=== PATIENT | male | born 1945 | race Caucasian/White ===

== ENCOUNTER → 2016-07-25 | Outpatient (CLI) | payer MEDICARE, BC | LOC: MW.CHGS 08:00 | PROVIDERS: ATTEND Surgery | DX: K80.20 Calculus of gallbladder without cholecystitis without obstruction (principal) | CPT/HCPCS: 99203 ==

== ENCOUNTER 2023-10-01 09:24 | Emergency (ER) | payer MEDICARE, BC ==
[2023-10-01] MEDS ORDERED: Sodium Chloride 0.9% 10 ML Syringe FLUSH PRN (09:29)
[2023-10-01] MEDS ORDERED: Sodium Chloride 0.9% 2.5 ML Syringe FLUSH PRN (09:29)
[2023-10-01] MEDS: Aspirin 81 MG Tab.Chew PO ONE (09:35)
[2023-10-01] MEDS: Ondansetron 4 MG/2 ML SDV IVPUSH ONE ×2 (09:51→09:54)
[2023-10-01] MEDS: Tenecteplase 50 MG Kit IV ONE (09:51)
[2023-10-01 09:52] LABS: HEMATOCRIT 32.4 % (42.0-52.0); HEMOGLOBIN 9.9 g/dL (14.0-18.0); MEAN CORPUSCULAR HGB CONC 30.6 g/dL (32.0-36.0); MEAN CORPUSCULAR VOLUME 88.5 fL (83.0-99.0); MEAN PLATELET VOLUME 10.7 fL (9.4-12.4); NRBC ABSOLUTE 0.15 K/uL (0.00-0.02); NRBC PERCENT 1.6 /100WBC (0.0-0.2); PLATELET COUNT,PLT 342 K/uL (150-400); RED BLOOD CELL COUNT 3.66 M/uL (4.52-5.90)
[2023-10-01] MEDS: Sodium Chloride 0.9% 1,000 ML IV ONE ×2 (09:52→10:14)
[2023-10-01] MEDS: Tenecteplase 50 MG Kit ONE (09:53)
[2023-10-01] MEDS: Clopidogrel 75 MG Tab PO ONE (10:02)
[2023-10-01] MEDS: Heparin Sodium 5,000 Units/ML Vial IVPUSH PRN (10:02)
[2023-10-01] MEDS: Heparin Sodium/0.45% NaCl 500 ML IV SCH (10:03)
[2023-10-01 10:07] LABS: A/G RATIO 1.2 (0.9-1.6); ALBUMIN 3.7 g/dL (3.4-5.0); BILIRUBIN TOTAL 1.8 mg/dL (0.2-1.0); CALCIUM 8.5 mg/dL (8.5-10.1); CARBON DIOXIDE,CO2 22.1 mmol/L (21.0-32.0); CREATININE 1.3 mg/dL (0.8-1.3); EST CRCL DRUG DOSING (CG) 51.4 mL/min; POTASSIUM,K 3.6 mmol/L (3.5-5.1); PROTEIN TOTAL,TP 6.9 g/dL (6.4-8.2)
[2023-10-01] MEDS: Nitroglycerin 2% Oint 1 GM UD Packet TOP ONE (10:14)
[2023-10-01 10:39] LABS: BAND ABSOLUTE MAN 0.19; BAND PERCENT MAN 2 %; BLASTS PERCENT MAN 1 %; ELLIPTOCYTES 2+ MODERATE; EOSINOPHILS ABSOLUTE MAN 0.38 K/uL (0.00-0.45); EOSINOPHILS PERCENT MAN 4 % (0-6); LYMPHOCYTES ABSOLUTE MAN 2.21 K/uL (1.00-4.80); LYMPHOCYTES PERCENT MAN 23 % (24-44); MONOCYTES ABSOLUTE MAN 0.58 K/uL (0.00-0.80); MONOCYTES PERCENT MAN 6 % (0-8); POIKILOCYTOSIS 2+ MODERATE; SEG NEUTROPHILS ABSOLUTE MAN 6.14 K/uL (1.80-7.70); SEG NEUTROPHILS PERCENT MAN 64 % (41-71)
[2023-10-01 10:40] LABS: PLATELET COUNT ESTIMATE ADEQUATE
[2023-10-01] MEDS ORDERED: EPINEPHrine 1 MG in Sodium Chloride 0.9% 100 ML IV SCH (10:45)
[2023-10-01] MEDS: HYDROmorphone 0.5 MG/0.5 ML Syringe IVPUSH ONE (10:51)
[2023-10-01] MEDS: Sodium Chloride 0.9% 1,000 ML IV STA (10:58)
[2023-10-01] MEDS: Norepinephrine Bit/D5W Premix 250 ML IV SCH (11:22)
[2023-10-01] MEDS: Norepinephrine Bit/D5W Premix 250 ML ONE (11:23)
== END 2023-10-01 11:24 ==
LOC: MW.ED 09:24
DX: I21.3 ST elevation (STEMI) myocardial infarction of unspecified site (principal); I25.10 Atherosclerotic heart disease of native coronary artery without angina pectoris; Z95.5 Presence of coronary angioplasty implant and graft; Z88.5 Allergy status to narcotic agent; Z88.0 Allergy status to penicillin; Z88.2 Allergy status to sulfonamides; Z75.8 Other problems related to medical facilities and other health care
CPT/HCPCS: 36415; 71045; 80053; 82947; 84484; 85025; 85730; 93005; 96365; 96375; 99285; A9270; J1170; J1644; J2405; J3101; J7030; 93010; 99291; J3490

== ENCOUNTER 2024-09-24 15:09 | Emergency (ER) | payer MEDICARE, BC ==
[2024-09-24] MEDS ORDERED: Acetaminophen 325 MG/10.15 ML PO ONE (15:30)
[2024-09-24] MEDS ORDERED: Sodium Chloride 0.9% 2.5 ML Syringe FLUSH PRN (16:14)
[2024-09-24] MEDS ORDERED: Sodium Chloride 0.9% 10 ML Syringe FLUSH PRN (16:14)
[2024-09-24 16:48] LABS: NRBC ABSOLUTE 0.21 K/uL (0.00-0.02); NRBC PERCENT 5.5 /100WBC (0.0-0.2); PLATELET COUNT,PLT 188 K/uL (150-400); RED BLOOD CELL COUNT 3.07 M/uL (4.52-5.90); WHITE BLOOD CELL COUNT,WBC 3.79 K/uL (3.9-11.3)
[2024-09-24 17:01] LABS: INR 1.1 (0.86-1.11); PTT,PARTIAL THROMBOPLSTIN TIME 27.6 SEC (23.9-30.7)
[2024-09-24 17:29] LABS: A/G RATIO 1.5 (0.9-1.6); ALANINE AMINOTRANSFERASE,ALT 20.0 IU/L (14-63); ASPARTATE AMNIOTRANSFERASE,AST 21.0 IU/L (15-37); BILIRUBIN TOTAL 1.7 mg/dL (0.2-1.0); BLOOD UREA NITROGEN,BUN 30.0 mg/dL (7.0-18.0); CARBON DIOXIDE,CO2 22.9 mmol/L (21.0-32.0); CHLORIDE,CL 102.0 mmol/L (98-107); CREATININE 1.9 mg/dL (0.8-1.3); EST CRCL DRUG DOSING (CG) 33.58 mL/min; GLUCOSE RANDOM 98.0 mg/dL (74-106); POTASSIUM,K 4.3 mmol/L (3.5-5.1); PRO B-TYPE NATRIUR PEPT,BNPPRO 10475.0 pg/mL (0-450); PROTEIN TOTAL,TP 6.1 g/dL (6.4-8.2); SODIUM,NA 137.0 mmol/L (136-148)
[2024-09-24 17:33] LABS: ESTIMATED GFR 35.0 mL/min (>60)
[2024-09-24 17:53] LABS: BASOPHILS ABSOLUTE MAN 0.23 K/uL (0.00-0.20); BASOPHILS PERCENT MAN 6 % (0-1); EOSINOPHILS ABSOLUTE MAN 0.49 K/uL (0.00-0.45); EOSINOPHILS PERCENT MAN 13 % (0-6); LYMPHOCYTES ABSOLUTE MAN 0.95 K/uL (1.00-4.80); LYMPHOCYTES PERCENT MAN 25 % (24-44); MONOCYTES ABSOLUTE MAN 0.30 K/uL (0.00-0.80); MONOCYTES PERCENT MAN 8 % (0-8); SEG NEUTROPHILS ABSOLUTE MAN 1.82 K/uL (1.80-7.70); SEG NEUTROPHILS PERCENT MAN 48 % (41-71)
[2024-09-24 17:54] LABS: NRBC MANUAL 6 %
== END 2024-09-24 18:19 | disposition home or self-care (01) ==
LOC: MW.ED 15:09
DX: S83.91XA Sprain of unspecified site of right knee, initial encounter (principal); R79.89 Other specified abnormal findings of blood chemistry; I11.0 Hypertensive heart disease with heart failure; I50.9 Heart failure, unspecified; Z90.49 Acquired absence of other specified parts of digestive tract; Z88.0 Allergy status to penicillin; Z88.4 Allergy status to anesthetic agent; Z88.2 Allergy status to sulfonamides; Z88.5 Allergy status to narcotic agent; Z88.8 Allergy status to other drugs, medicaments and biological substances; W18.30XA Fall on same level, unspecified, initial encounter
CPT/HCPCS: 36415; 71045; 73562; 80053; 83880; 84484; 85025; 85610; 85730; 93005; 96374; 99284; J2371; 93010